=== PATIENT | male | born 2000 | race Two or more races ===

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

== ENCOUNTER → 2018-01-18 | Outpatient (CLI) | payer OTHER ==
--- NOTE | 2018-01-18 14:07 | RADIOLOGY REPORT (SQ) ---
EXAM DESCRIPTION: MRI LT UPPER EXTREMITY COMBO COMPLETED DATE/TIME: 01/18/2018 1:18 pm REASON FOR STUDY: L02.512 CUTANEOUS ABSCESS OF LEFT HAND L02.512 CUTANEOUS ABSCESS OF LEFT HAND COMPARISON: None. TECHNIQUE: Multiplanar imaging of the left hand to include T1-weighted, postcontrast T1-weighted, an d T2-weighted images. CONTRAST TYPE AND DOSE: 15 mL Dotarem. RENAL FUNCTION: None required. The patient is less than 50 years old. LIMITATIONS: None. FINDINGS: BONE MARROW: Decreased T1 and increased T2 signal in the distal 1st phalanx. No cortical breakthrough. SOFT TISSUES: Adjacent soft tissue inflammation. Skin defect volar surface base of distal 1st phalan x. Increased signal in the flexor pollicis longus tendon at the level of the proximal 1st phalanx. Small amount of tendon sheath fluid. OTHER: No other significant finding. IMPRESSION: 1. 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 2. Tenosynovitis flexor pollicis longus. TECHNICAL DOCUMENTATION: JOB ID: [id number] [employer]- All Rights Reserved Reading location - IP/workstation name: [email or web address]
== END ==
LOC: RAD 13:23
PROVIDERS: ATTEND Orthopaedic Surgery
DX: L02.512 Cutaneous abscess of left hand (principal)
CPT/HCPCS: 73220; A9576